=== PATIENT | female | born 1960 | race Caucasian/White ===

== ENCOUNTER 2016-12-15 14:24 | Inpatient (IN) | payer MEDICARE, OTHER ==
[~2016-12-15] VITALS: Ht 172.7 cm; Wt 66.4 kg
[~2016-12-15 14:24] MED LIST: BUPR-197 PO; LORA-475 PO; PROZ20CA11 PO; TOPA25TA8 PO; TRAZ100 PO; ZYPR10TA PO
--- NOTE | 2016-12-15 14:56 | PD ---
HPI Chief Complaint: psych Time Seen by Provider: 14:56 Travel History International Travel<30 days: No Contact w/Intl Traveler<30days: No Traveled to known affect area: No History of Present Illness HPI 56-year-old female presents to the ED under Martinez act for psychiatric evaluation. According to Martinez act paper work the patient endorsed suicidal ideation while visiting her primary care today. On presentation the patient does endorse this account. She states that she's felt suicidal "most of my adult life." She states that she has a plan but declines to provide the details. She denies somatic complaints. She endorses compliance with her daily psychiatric medications. She endorses occasional marijuana use. She denies alcohol or other illicit drug use. [facility] Social History Alcohol Use: Yes Tobacco Use: No Substance Use: No Allergies-Medications (Allergen,Severity, Reaction): Coded Allergies: No Known Allergies (Unverified , 10/03/14) Reported Meds & Prescriptions Reported Meds & Active Scripts Active Reported Atorvastatin (Atorvastatin Calcium) 10 Mg Tab 10 Mg PO HS Lorazepam 2 Mg Tab 2 Mg PO DAILY PRN Buspirone (Buspirone HCl) 5 Mg Tab 5 Mg PO BID Zyprexa (Olanzapine) 10 Mg Tab 10 Mg PO HS [place] Carbonate 600 Mg Cap 600 Mg PO HS [place] Carbonate 300 Mg Cap 300 Mg PO DAILY NEB [aripiprazole] PO DAILY Review of Systems Except as stated in HPI: all other systems reviewed are Neg Physical Exam Narrative GENERAL: Well-nourished, well-developed white female in no acute distress. PSYCHIATRIC: No delusional thought processes. No hallucinations. Flat affect. SKIN: Focused skin assessment warm/dry. HEAD: Normocephalic. EYES: No scleral icterus. No injection or drainage. PERRLA. NECK: Supple, trachea midline. No JVD or lymphadenopathy. CARDIOVASCULAR: Regular rate and rhythm without murmurs, gallops, or rubs. RESPIRATORY: Breath sounds clear and equal bilaterally. No accessory muscle use. GASTROINTESTINAL: Abdomen soft, non-tender, nondistended. MUSCULOSKELETAL: No cyanosis, or edema. Ambulatory with a normal gait. BACK: Nontender without obvious deformity. No CVA tenderness. Data Data Last Documented VS Vital Signs Date Time Temp Pulse Resp B/P Pulse Ox O2 Delivery O2 Flow Rate FiO2 12/15/16 15:13 101 19 12/15/16 15:09 98.1 139/85 99 Orders Complete Blood Count With Diff (12/15/16 15:00) Comprehensive Metabolic Panel (12/15/16 15:00) Psych Screen (12/15/16 15:00) Drug Screen, Random Urine (12/15/16 15:00) [place] (Li) (12/15/16 15:39) Diet Regular Basic (12/15/16 Dinner) Labs Laboratory Tests Test 12/15/16 15:25 White Blood Count 7.5 TH/MM3 Red Blood Count 4.54 MIL/MM3 Hemoglobin 13.6 GM/DL Hematocrit 40.4 % Mean Corpuscular Volume 89.1 FL Mean Corpuscular Hemoglobin 29.9 PG Mean Corpuscular Hemoglobin 33.6 % Concent Red Cell Distribution Width 14.2 % Platelet Count 287 TH/MM3 Mean Platelet Volume 8.4 FL Neutrophils (%) (Auto) 57.2 % Lymphocytes (%) (Auto) 27.3 % Monocytes (%) (Auto) 11.0 % Eosinophils (%) (Auto) 4.0 % Basophils (%) (Auto) 0.5 % Neutrophils # (Auto) 4.3 TH/MM3 Lymphocytes # (Auto) 2.0 TH/MM3 Monocytes # (Auto) 0.8 TH/MM3 Eosinophils # (Auto) 0.3 TH/MM3 Basophils # (Auto) 0.0 TH/MM3 CBC Comment DIFF FINAL Differential Comment Sodium Level 136 MEQ/L Potassium Level 3.9 MEQ/L Chloride Level 105 MEQ/L Carbon Dioxide Level 21.2 MEQ/L Anion Gap 10 MEQ/L Blood Urea Nitrogen 8 MG/DL Creatinine 0.76 MG/DL Estimat Glomerular Filtration 79 ML/MIN Rate Random Glucose 97 MG/DL Calcium Level 9.8 MG/DL Total Bilirubin 0.3 MG/DL Aspartate Amino Transf 9 U/L (AST/SGOT) Alanine Aminotransferase 13 U/L (ALT/SGPT) Alkaline Phosphatase 56 U/L Total Protein 8.0 GM/DL Albumin 4.3 GM/DL Urine Opiates Screen NEG Urine Barbiturates Screen NEG Urine Amphetamines Screen NEG Urine Benzodiazepines Screen NEG Urine Cocaine Screen NEG Urine Cannabinoids Screen POS MDM Medical Decision Making Medical Screen Exam Complete: Yes Emergency Medical Condition: Yes Differential Diagnosis Adjustment disorder versus anxiety versus bipolar versus depression versus dementia versus electrolyte disorder versus malingering versus mood disorder versus ODD versus psychosis versus PTSD versus schizophrenia versus schizoaffective disorder versus substance-induced mood disorder versus other Narrative Course 56-year-old female presents to the ED under Martinez act for psychiatric evaluation. According to Martinez act paper work the patient endorsed suicidal ideation while visiting her primary care today. On presentation the patient does endorse this account. She states that she's felt suicidal "most of my adult life." She states that she has a plan but declines to provide the details. She denies somatic complaints. She endorses compliance with her daily psychiatric medications. She endorses occasional marijuana use. She denies alcohol or other illicit drug use. Vitals reviewed. Physical exam is unremarkable. No concerning abnormalities of the lab work. Tox screen positive for marijuana. The patient is medically cleared for psychiatric evaluation. Please see psych notes for disposition. Diagnosis Primary Impression: Medical clearance for psychiatric admission Divina Villatoro Dec 15, 2016 14:56
[2016-12-15 15:09] VITALS: BP 139/85; PULSE 101; RESP 19; TEMP 98.1; O2SAT 99
[2016-12-15] MEDS ORDERED: LITH300C2 PO (15:19)
[2016-12-15] MEDS ORDERED: LITH600C PO (15:19)
[2016-12-15] MEDS ORDERED: aripiprazole PO (15:19)
[2016-12-15] MEDS ORDERED: ZYPR10TA PO (15:19)
[2016-12-15] MEDS ORDERED: BUSP5TAB PO (15:19)
[2016-12-15] MEDS ORDERED: ATOR10TA15 PO (15:20)
[2016-12-15] MEDS ORDERED: LORA2TAB7 PO (15:20)
[2016-12-15 15:55] LABS: AUTOMATED NEUTROPHIL # 4.3 TH/MM3 (1.8-7.7); BASOPHIL % 0.5 % (0.0-2.0); EOSINOPHIL # 0.3 TH/MM3 (0-0.4); HEMATOCRIT 40.4 % (35.0-46.0); HEMO FLAGS DIFF FINAL; LYMPH % 27.3 % (9.0-44.0); MEAN CELL VOLUME 89.1 FL (80.0-100.0); MEAN CORPUSCULAR HEMOGLOBIN 29.9 PG (27.0-34.0); MEAN CORPUSCULAR HGB CONC 33.6 % (32.0-36.0); NEUT % 57.2 % (16.0-70.0); PLATELET COUNT 287 TH/MM3 (150-450); RED BLOOD COUNT 4.54 MIL/MM3 (4.00-5.30); RED CELL DISTRIBUTION WIDTH 14.2 % (11.6-17.2); WHITE BLOOD COUNT 7.5 TH/MM3 (4.0-11.0)
[2016-12-15 16:03] LABS: AMPHETAMINE, URINE NEG (NEG); BARBITURATES, URINE NEG (NEG); COCAINE, URINE NEG (NEG)
[2016-12-15 16:20] LABS: ANION GAP 10 MEQ/L (5-15); AST (GOT) 9 U/L (15-37); BICARBONATE 21.2 MEQ/L (21.0-32.0); BLOOD UREA NITROGEN 8 MG/DL (7-18); CHLORIDE 105 MEQ/L (98-107); GLOMERULAR FILTRATION RATE 79 ML/MIN (>89); POTASSIUM 3.9 MEQ/L (3.5-5.1); SODIUM (NA) 136 MEQ/L (136-145)
[2016-12-15 16:21] LABS: ALT (GPT) 13 U/L (10-53)
[2016-12-15 16:24] LABS: ALKALINE PHOSPHATASE 56 U/L (45-117); TOTAL BILIRUBIN ADULT 0.3 MG/DL (0.2-1.0)
[2016-12-15 17:33] VITALS: BP 132/84
[2016-12-15] MEDS ORDERED: BENZTROPINE MESYLATE 1 MG TAB PO PRN (20:00)
[2016-12-15] MEDS ORDERED: diphenhydrAMINE HCL 50 MG CAP PO PRN (20:00)
[2016-12-15] MEDS ORDERED: LORazepam 1 MG TAB PO PRN (20:00)
[2016-12-15] MEDS ORDERED: LORazepam 2 MG/ML VIAL IM PRN (20:00)
[2016-12-15] MEDS ORDERED: ACETAMINOPHEN 325 MG TAB PO PRN (20:00)
[2016-12-15] MEDS ORDERED: ALUMINUM/MAGNESIUM/SIMETH 30 ML CUP PO PRN (20:00)
[2016-12-15] MEDS ORDERED: BENZTROPINE MESYLATE 2 MG/2 ML VIAL IM PRN (20:00)
[2016-12-15] MEDS ORDERED: MAGNESIUM HYDROXIDE SUSP 30 ML CUP PO PRN (20:00)
[2016-12-15] MEDS ORDERED: OLANZapine 10 MG TAB PO SCH (21:00)
[2016-12-15] MEDS ORDERED: LITHIUM CARBONATE 300 MG CAP PO SCH (21:00)
[2016-12-15] MEDS ORDERED: ATORVASTATIN 10 MG TAB PO SCH (21:00)
[2016-12-15 21:57] VITALS: BP 123/65; PULSE 78; RESP 17; O2SAT 95
[2016-12-15] MEDS: busPIRone HCL 5 MG TAB PO SCH (22:00)
[2016-12-16 00:41] VITALS: BP 107/63; PULSE 89; RESP 16; TEMP 97.9; O2SAT 97
[2016-12-16 06:13] VITALS: BP 117/59; PULSE 97; RESP 16; TEMP 98.4; O2SAT 97
[2016-12-16] MEDS ORDERED: LITHIUM CARBONATE 300 MG CAP PO SCH ×2 (08:00→09:00)
[2016-12-16] MEDS: busPIRone HCL 5 MG TAB PO SCH (08:54)
[2016-12-16] MEDS ORDERED: REMOVE OLD PATCH T-DERMAL SCH (09:00)
[2016-12-16] MEDS: NICOTINE 21 MG/24 HR PATCH T-DERMAL SCH ×2 (09:00→09:22)
--- NOTE | 2016-12-16 12:28 | HHI.HP ---
Provisional Diagnosis Admission Date Dec 15, 2016 at 19:53 [place] I. Bipolar disorder in partial remission f 31.70, marijuana abuse f 12.10 Certification of Person's Competence To Provide Express and Informed Consent I have personally examined Merry Simms , a person being served at [facility] on, Dec 16, 2016 12:16. Express and informed consent means consent voluntarily given in writing, by a competent person, after sufficient explanation and disclosure of the subject matter involved to enable the person to make a knowing and willful decision without any element of force, fraud, deceit, duress, or other form of constraint or coercion. This person is 18 years of age or older, is not now known to be incompetent to consent to treatment with a guardian advocate, and does not have a health care surrogate or proxy currently making medical treatment decisions. I have found this person to be one of the following: [xxx] Competent to provide express and informed consent, as defined above, for voluntary admission to this facility and is competent to provide express and informed consent for treatment. He/she has the consistent capacity to make well reasoned, willful, and knowing decisions concerning his or her medical or mental health treatment. The person fully and consistently understands the purpose of the admission for examination/placement and is fully capable of personally exercising all rights assured [place] Incompetent to provide express and informed consent to voluntary admission, and this is incompetent to provide express and informed consent to treatment. The person must be transferred to involuntary status and a petition for a guardian advocate filed with the Circuit Court. [] Refusing to provide express and informed consent to voluntary admission but is competent to provide express and informed consent for treatment. The person must be discharged or transferred to involuntary status. Form shall be completed within 24 hours of a person's arrival at the receiving facility and filed in the clinical record of each person: 1. Admitted on a voluntary basis 2. Permitted to provide express and informed consent to his/her own treatment 3. Allowed to transfer from involuntary to voluntary status 4. Prior to permitting a person to consent to his or her own treatment after having been previously found incompetent to consent to treatment. History of Present Illness Capacity: Has Capacity HPI Patient is a 56 white female initially comes to emergency department under Martinez act by the [place] [employer] dated 12/15/16 at 2:08 PM that document reviewed essentially stating subject advised that she has had suicidal thoughts/homicidal thoughts for a very long time and requested help. Subject also takes 7 types of medicines for mental status. Patient seen screened in ED urine toxicology positive for marijuana. At the present time patient sitting quietly in her room on 2600 nurse Mariluz and counselor Katharine present throughout session patient is alert oriented white female appears stated age. States she was going to her primary care physician for routine checkup was asked if she ever had suicidal thoughts. Patient is diagnosed bipolar has been bipolar for many years. States she has had intermittent suicidal thoughts all her adult life. She denies any suicidal intent or plan. Patient is a client through [employer] sees Zay Moreira on a regular basis. He prescribes psychotropic medications for her. He is aware of her chronic suicidal thoughts. Patient lives with her of many years her daughter and son-in- law and [id number] granddaughter. Patient states that all get along well and is enjoying quite a bit her granddaughter. Patient states she had a suicide attempt overdosing on Ativan 4+ years ago she has had no other inpatient psychiatric hospitalization. She states she smokes marijuana 2-3 times per week. Denies any alcohol or other drug use. Patient is able contract with me to do no harm. Patient denies any physical or sexual abuse as a child denies any mental illness in family origin. At the present time patient does not meet Martinez criteria. I will lift Martinez act allow patient to be discharged to herself with no Rx by me. She may [id number] scheduled medications at home. She is to call [employer] to arrange for of follow-up appointment with Zay Moreira soon. Also recommended complete abstinence from drugs including marijuana Review of Systems Constitutional: DENIES: Diaphoretic episodes, Fatigue, Fever, Weight gain, Weight loss, Chills, Dizziness, Change in appetite, Night Sweats Endocrine: DENIES: Abnorml menstrual pattern, Heat/cold intolerance, Polydipsia , Polyuria, Polyphagia Eyes: DENIES: Blurred vision, Diplopia, Eye inflammation, Eye pain, Vision loss , Photosensitivity, Double Vision Ears, nose, mouth, throat: DENIES: Tinnitus, Hearing loss, Vertigo, Nasal discharge, Oral lesions, Throat pain, Hoarseness, Ear Pain, Running Nose, Epistaxis, Sinus Pain, Toothache, Odynophagia Respiratory: DENIES: Apneas, Cough, Snoring, Wheezing, Hemoptysis, Sputum production, Shortness of breath Cardiovascular: DENIES: Chest pain, Palpitations, Syncope, Dyspnea on Exertion , PND, Lower Extremity Edema, Orthopnea, Claudication Gastrointestinal: DENIES: Abdominal pain, Black stools, Bloody stools, Constipation, Diarrhea, Nausea, Vomiting, Difficulty Swallowing, Anorexia Genitourinary: DENIES: Abnormal vaginal bleeding, Dysmenorrhea, Dyspareunia, Sexual dysfunction, Urinary frequency, Urinary incontinence, Urgency, Hematuria , Dysuria, Nocturia, Vaginal discharge Musculoskeletal: DENIES: Joint pain, Muscle aches, Stiffness, Joint Swelling, Back pain, Neck pain Integumentary: DENIES: Abnormal pigmentation, Pruritus, Rash, Nail changes, Breast masses, Breast skin changes, Nipple discharge Hematologic/lymphatic: DENIES: Bruising, Lymphadenopathy Immunologic/allergic: DENIES: Eczema, Urticaria Neurologic: DENIES: Abnormal gait, Headache, Localized weakness, Paresthesias, Seizures, Speech Problems, Tremor, Poor Balance Psychiatric: COMPLAINS OF: Suicidal Ideation (vague fleeting chronic with no intent or plan, able contracted to no harm) Past Psych History Psychological trauma history Denies Violence risk - others (6 mos) Denies Violence risk - self (6 mos) Denies Substance Abuse History Drugs/Alcohol past 12 months Frequent marijuana user Past Family Social History Coded Allergies: No Known Allergies (Unverified , 10/03/14) Past Medical History Patient medically cleared ED Reported Medications Atorvastatin 10 Mg Tab10 Mg PO HS #30 TAB Ref 0 12/15/16 Lorazepam 2 Mg Tab2 Mg PO DAILY PRN (ANXIETY) Ref 0 12/15/16 Buspirone 5 Mg Tab5 Mg PO BID Ref 0 12/15/16 Olanzapine (Zyprexa)10 Mg Tab10 Mg PO HS #30 TAB Ref 0 12/15/16 [place] Carbonate 600 Mg [id number] Mg PO HS Ref 0 12/15/16 [place] Carbonate 300 Mg [id number] Mg PO DAILY NEB Ref 0 12/15/16 [aripiprazole] No Conflict Check Po Daily 12/15/16 Current Medications Medications (Trade) Dose Ordered Sig/Anant Route Start Time Stop Time Status Last Admin (Lipitor) 10 mg HS PO 12/15/16 21:00 (Buspar) 5 mg BID PO 12/15/16 21:00 12/16/16 08:54 ([place] Carbonate) 600 mg HS PO 12/15/16 21:00 12/15/16 22:00 (ZyPREXA) 10 mg HS PO 12/15/16 21:00 12/15/16 22:00 (Ativan) 1 mg Q6H PRN PO 12/15/16 20:00 (Ativan Inj) 1 mg Q6H PRN IM 12/15/16 20:00 (Benadryl) 50 mg HS PRN PO 12/15/16 20:00 (Tylenol) 650 mg Q4H PRN PO 12/15/16 20:00 (Milk Of Magnesia Liq) 30 ml DAILY PRN PO 12/15/16 20:00 (Mag-Al Plus Susp Liq) 30 ml Q6H PRN PO 12/15/16 20:00 (Habitrol 21 Mg Patch.24 Hr) 1 patch DAILY T-DERMAL 12/16/16 09:00 (Cogentin) 1 mg Q12H PRN PO 12/15/16 20:00 (Cogentin Inj) 1 mg Q12H PRN IM 12/15/16 20:00 Miscellaneous Information 1 DAILY T-DERMAL 12/16/16 09:00 ([place] Carbonate) 300 mg DAILY PO 12/16/16 09:00 12/16/16 08:54 Family History No history mental health issues and family Social History Lives with her daughter son-in-law and [id number] granddaughter Patient's Strengths (min. 2) Cooperative able to access healthcare supportive family Physical Exam Patient seen screened in ED exam reviewed and agreed with Vital Signs Vital Signs Date Time Temp Pulse Resp B/P Pulse Ox O2 Delivery O2 Flow Rate FiO2 12/16/16 06:13 98.4 97 16 117/59 97 12/15/16 21:57 Room Air Mental Status Examination Alert oriented white female appears about stated age sitting quietly in her room with staff is she is calm cooperative with good eye contact reactive occasional small smile Appearance Clean and neat Speech: Unremarkable Orientation: x3 Memory: Unremarkable Thought Process: Logical, Organized Thought Content: Unremarkable Language Fair Fund of Knowledge Fair Hallucination Type: None Attention and Concentration: Good Suicidal Ideation: Yes (is chronic multiple year vague suicidal thoughts, there is no intent or plan, able contracted to no harm) Previous Suicide Attempts: Yes Homicidal Ideation: No (very vague) Previous Homicide Attempts: No Insight: Fair Judgment: WNL Affect: Good Mood: Euthymic Motor Activity: Normal gait Assessment & Plan Problem List: (1) Bipolar disorder in partial remission ICD Code: F31.70 (2) Marijuana abuse ICD Code: F12.10 Assessment & Plan Estimated LOS: days this that patient does not meet Martinez criteria will lift Martinez act. Is okay by psych for discharge. The been no Rx by me. May continue her on scheduled medications at home follow-up Zay Moreira at [facility] act Discharge Planning See above Request HC Surrog/Guard Advoc?: No Yuri Hernandez MD Dec 16, 2016 12:28
--- NOTE | 2016-12-16 12:36 | HHI.DS ---
Psychiatry Discharge Summary Inpatient Psychiatric care?: Yes Advance Directive: No Reason Not Provided: not interested Mental Health AdvanceDirective: No Health Care Proxy: No Admission Admission Date Dec 15, 2016 at 19:53 Admission Diagnosis: (1) Bipolar disorder in partial remission ICD Code: F31.70 (2) Marijuana abuse ICD Code: F12.10 Brief History Patient is a 56 white female initially comes to emergency department under Martinez act by the [place] [employer] dated 12/15/16 at 2:08 PM that document reviewed essentially stating subject advised that she has had suicidal thoughts/homicidal thoughts for a very long time and requested help. Subject also takes 7 types of medicines for mental status. Patient seen screened in ED urine toxicology positive for marijuana. At the present time patient sitting quietly in her room on 2600 nurse Mariluz and counselor Katharine present throughout session patient is alert oriented white female appears stated age. States she was going to her primary care physician for routine checkup was asked if she ever had suicidal thoughts. Patient is diagnosed bipolar has been bipolar for many years. States she has had intermittent suicidal thoughts all her adult life. She denies any suicidal intent or plan. Patient is a client through [facility] sees Zay Moreira on a regular basis. He prescribes psychotropic medications for her. He is aware of her chronic suicidal thoughts. Patient lives with her of many years her daughter and son-in- law and [id number] granddaughter. Patient states that all get along well and is enjoying quite a bit her granddaughter. Patient states she had a suicide attempt overdosing on Ativan 4+ years ago she has had no other inpatient psychiatric hospitalization. She states she smokes marijuana 2-3 times per week. Denies any alcohol or other drug use. Patient is able contract with me to do no harm. Patient denies any physical or sexual abuse as a child denies any mental illness in family origin. At the present time patient does not meet Martinez criteria. I will lift [place] act allow patient to be discharged to herself with no Rx by me. She may [id number] scheduled medications at home. She is to call [facility] to arrange for of follow-up appointment with Zay Moreira soon. Also recommended complete abstinence from drugs including marijuana Tobacco Use In Past 30 Days: 5 or More Cigarettes/Day Alcohol Use: Monthly or Less Hospital Course Please see above note under brief history. Patient does not meet Martinez criteria will lift [place] act patient to be discharged herself. May continue her on scheduled outpatient medications. To follow-up with Zay Moreira through [facility]. Absolute abstinence Results Blood Pressure 117 / 59 Vital Signs Date Time Temp Pulse Resp B/P Pulse Ox O2 Delivery O2 Flow Rate FiO2 12/16/16 06:13 98.4 97 16 117/59 97 12/15/16 21:57 Room Air Laboratory Tests Test 12/15/16 15:25 Monocytes (%) (Auto) 11.0 % (0.0-8.0) Estimat Glomerular Filtration 79 ML/MIN (>89) Rate Aspartate Amino Transf 9 U/L (15-37) (AST/SGOT) Urine Cannabinoids Screen POS (NEG) Laboratory Results Test 12/15/16 16:20 [place] Level 0.7 MEQ/L (0.5-1.5) Summary of Procedures None done Pending results at discharge: No Medications # of Antipsychotic meds at D/C: 0 Approp Antipsych med options 1 - Minimum of three failed multiple trials of monotherapy. 2 - Documented plan to taper to monotherapy due to previous use of multiple meds OR cross-taper in progress at D/C. 3 - Documentation of augmentation of Clozapine. 4 - Justification other than those listed in allowable values 1-3, document here : Discharge Discharge Date: Dec 16, 2016 Discharge Diagnosis: (1) Bipolar disorder in partial remission Diagnosis: Principal ICD Code: F31.70 (2) Marijuana abuse Diagnosis: Secondary ICD Code: F12.10 Mental Status Exam at Disch Alert oriented white female, she is normoactive, mood is euthymic with good range intensity of her affect, speech rate and rhythm are within normal limits though no formal thought disorder, no auditory or visual hallucinations no delusions. Insight and judgment is poor to fair cognition grossly intact Pt Condition on Discharge: Stable Discharge Disposition: Discharge Home Discharge Instructions Diet Instructions: As Tolerated, No Restrictions Activities you can perform: Regular-No Restrictions Scheduled Appointment: [facility] Appointment Date: Dec 17, 2016 Appointment Time: 7:30am Discharge Time > 30 minutes Discharge/Advance Care Plan Health Problems: (1) Bipolar disorder in partial remission (2) Marijuana abuse Goals to promote your health * To prevent worsening of your condition and complications * To maintain your health at the optimal level Directions to meet your goals Take your medications as prescribed Follow your dietary instruction Follow activity as directed Keep your appointments as scheduled Take your immunizations and boosters as scheduled If your symptoms worsen call your PCP, if no PCP go to Urgent Care Center or Emergency Room For 20/12 questions related to your inpatient stay or results of tests pending at discharge, please contact Dr. Yuri Hernandez at Smoking is Dangerous to Your Health. Avoid second hand smoking Yuri Hernandez MD Dec 16, 2016 12:35
[2016-12-16 14:41] LABS: ANION GAP 8 MEQ/L (5-15); BICARBONATE 22.4 MEQ/L (21.0-32.0); BLOOD UREA NITROGEN 10 MG/DL (7-18); CHLORIDE 108 MEQ/L (98-107); GLOMERULAR FILTRATION RATE 63 ML/MIN (>89); POTASSIUM 4.2 MEQ/L (3.5-5.1); SODIUM (NA) 138 MEQ/L (136-145)
[2016-12-16 14:43] LABS: HDL CHOLESTEROL 50.6 MG/DL (40.0-60.0); LDL CHOLESTEROL 161 MG/DL (0-99)
[2016-12-16 18:04] LABS: HEMOGLOBIN A1a 0.9 %; HEMOGLOBIN A1b 0.7 %; HEMOGLOBIN Ao 86.1 %; HEMOGLOBIN F 0.9 %; HEMOGLOBIN LA1C 2.1 %; HEMOGLOBIN P3 3.5 %
== END 2016-12-16 18:22 | disposition home or self-care (01) | DRG 885 ==
LOC: NEPD 14:24 → NEDA 19:53 → H260 12-16 00:30
PROVIDERS: ADMIT Psychiatry & Neurology Psychiatry; ATTEND Psychiatry & Neurology Psychiatry
DX: F31.89 Other bipolar disorder (principal); R45.850 Homicidal ideations; R45.851 Suicidal ideations; F17.210 Nicotine dependence, cigarettes, uncomplicated; F12.10 Cannabis abuse, uncomplicated; Z91.5 Personal history of self-harm
CPT/HCPCS: 80048; 80053; 80061; 80178; 80307; 83036; 85025